=== PATIENT | female | born 1950 | race Hispanic/Latino ===

== ENCOUNTER → 2017-10-30 | Outpatient (CLI) | payer BC ==
[~2017-10-30] MED LIST: REGADENOSON 0.4 MG/5 ML PF SYG IVP SCH
== END | disposition home or self-care (01) ==
LOC: SHCH 08:56
PROVIDERS: ATTEND Internal Medicine Cardiovascular Disease
DX: I10 Essential (primary) hypertension (principal); I20.9 Angina pectoris, unspecified
CPT/HCPCS: 78452; 93017; 96374; A9500 ×2; J2785

== ENCOUNTER 2020-02-01 05:48 | Day surgery (SDC) | payer OTHER ==
[2020-02-01] VITALS (12 sets, daily range): BP systolic 118–148; BP diastolic 47–78
[~2020-02-01 05:48] MED LIST changes: +ASPI-556 PO; +HYDR12.54 PO; +METO100T14 PO; -REGADENOSON 0.4 MG/5 ML PF SYG IVP SCH; +ROSU5TAB12 PO
[2020-02-01 06:17] LABS: BASOPHILS % (AUTO) 0.3 % (0.0-5.0); EOSINOPHILS % (AUTO) 2.2 % (0.0-8.0); HEMATOCRIT 37.7 % (36-48); LYMPHOCYTES % (AUTO) 35.2 % (21.0-51.0); MEAN CORPUSCULAR HEMOGLOBIN 31.1 pg (27.0-33.0); MEAN CORPUSCULAR HGB CONC 31.8 g/dL (32.0-36.0); MEAN CORPUSCULAR VOLUME 97.7 fL (79-99); MONOCYTES % (AUTO) 11.4 % (3.0-13.0); NEUTROPHILS % (AUTO) 50.8 % (40.0-77.0); PLATELET COUNT (AUTO) 194 K/uL (130-400); RED BLOOD CELL COUNT(AUTO) 3.86 MIL/uL (4.00-5.50); RED CELL DISTRIBUTION WIDTH 13.9 % (11.0-15.5); WHITE BLOOD COUNT (AUTO) 6.8 K/uL (4.8-10.8)
[2020-02-01 06:33] LABS: CREATININE 0.9 mg/dL (0.5-1.5); POTASSIUM 3.7 mmol/L (3.5-5.1)
[2020-02-01 06:41] LABS: INR 0.97 (0.85-1.15); PARTIAL THROMBOPLASTIN TIME 24.7 SEC (26.3-35.5); PROTHROMBIN TIME 10.5 SEC (9.6-11.6)
[2020-02-01] MEDS ORDERED: SODIUM CHLORIDE 0.9% 1000ML 1,000 ML IV ONE (06:57)
[2020-02-01] MEDS ORDERED: BUPIVACAINE/PF 0.25% 30ML VIAL IJ ONE (07:26)
[2020-02-01] MEDS ORDERED: LIDOCAINE HCL 1% MDV 50ML VIAL ONE (07:26)
[2020-02-01] MEDS ORDERED: CEFAZOLIN SODIUM 1 GM VIAL ONE (07:26)
[2020-02-01] MEDS ORDERED: ONDANSETRON HCL 4 MG/2 ML VIAL ONE (07:44)
[2020-02-01] MEDS ORDERED: ACETAMINOPHEN 325 MG TAB PO PRN (08:45)
--- NOTE | 2020-02-01 08:50 | NUR ---
PT back from [employer]. Report received from TOBI Gómez via telephone. Care rendered over from TOBI Yo. Pt awake, alert, oriented, in no signs of distress. Pt with pressure dressing to left chest, remains clean, dry and intact. Ice pack applied to site. Pt denies any pain or nausea. Pt voided good amount via bedpan shortly after getting back. Tolerating fluids/solids.
--- NOTE | 2020-02-01 14:00 | NUR ---
Pt discharged home, tolerating fluids/solids well, ambulating well. Pt denies any pain, nausea or dizziness. Pressure dressing removed. Site remains clean, dry, and intact. No evidence of any bleeding. Pt instructed to leave dressing on until seen at scheduled follow-up appointment care. Pt instructed to monitor for signs and symptoms of bleeding or infection and to notify the doctor if any presented. Prescription for antibiotic given to patient.
== END 2020-02-01 14:00 | disposition home or self-care (01) ==
LOC: DAH 05:48
PROVIDERS: ATTEND Internal Medicine Cardiovascular Disease
DX: I49.5 Sick sinus syndrome (principal); I10 Essential (primary) hypertension; Z79.899 Other long term (current) drug therapy; Z79.01 Long term (current) use of anticoagulants
CPT/HCPCS: 33228; 36415; 80048; 85025; 85610; 85730; 93005; A4215; A4216; A4221; A4222; A4223 ×3; A4606; A4663; C1785; J0690; J2405; J3490 ×2; J7030

== ENCOUNTER → 2023-11-04 | Outpatient (CLI) | payer OTHER ==
[~2023-11-04] MED LIST changes: +NEOM28.36 TP
== END | disposition home or self-care (01) ==
LOC: RAH 13:08
PROVIDERS: ATTEND Internal Medicine Cardiovascular Disease
DX: Z13.6 Encounter for screening for cardiovascular disorders (principal); R07.9 Chest pain, unspecified
CPT/HCPCS: 75571

== ENCOUNTER 2024-01-13 09:36 | Emergency (ER) | payer OTHER ==
[~2024-01-13] VITALS: Ht 157.5 cm; Wt 112.0 kg
[2024-01-13 09:37] VITALS: BP 154/63; PULSE 68; RESP 14
[2024-01-13] MEDS: ONDANSETRON 4MG INJ IVP ONE (10:19)
[2024-01-13] MEDS: MORPHINE 2 MG SYG IM ONE (10:19)
[2024-01-13] MEDS: FAMOTIDINE 20MG VIAL IV ONE (10:19)
[2024-01-13 10:37] LABS: BASOPHILS # (AUTO) 0.04 K/uL (0.00-0.20); BASOPHILS % (AUTO) 0.6 % (0.0-5.0); EOSINOPHILS # (AUTO) 0.08 K/uL (0.00-0.70); EOSINOPHILS % (AUTO) 1.2 % (0.0-8.0); HEMATOCRIT 36.5 % (36-48); IMMATURE GRANULOCYTE ABSOLUTE 0.02 K/uL (0-1); LYMPHOCYTES % (AUTO) 30.4 % (21.0-51.0); MEAN CORPUSCULAR HEMOGLOBIN 31.5 pg (27.0-33.0); MEAN CORPUSCULAR HGB CONC 33.4 g/dL (32.0-36.0); MEAN CORPUSCULAR VOLUME 94.3 fL (79-99); MONOCYTES # (AUTO) 0.7 K/uL (0.1-1.0); MONOCYTES % (AUTO) 10.1 % (3.0-13.0); NEUTROPHILS # (AUTO) 3.7 K/uL (1.8-7.7); NEUTROPHILS % (AUTO) 57.4 % (40.0-77.0); PLATELET COUNT (AUTO) 224 K/uL (130-400); RED BLOOD CELL COUNT(AUTO) 3.87 MIL/uL (4.00-5.50); RED CELL DISTRIBUTION WIDTH 14.2 % (11.0-15.5); WHITE BLOOD COUNT (AUTO) 6.4 K/uL (4.8-10.8)
[2024-01-13 10:47] LABS: BILIRUBIN,URINE NEGATIVE (NEGATIVE); COLOR,URINE YELLOW (YELLOW); GLUCOSE, URINE (UA) NEGATIVE (NEGATIVE); KETONES,URINE NEGATIVE (NEGATIVE); LEUKOCYTE ESTERASE ,URINE SMALL Leu/uL (NEGATIVE); NITRATE,URINE NEGATIVE (NEGATIVE); OCCULT BLOOD,URINE MODERATE (NEGATIVE); PROTEIN,URINE TRACE mg/dL (NEGATIVE); UROBILINOGEN,URINE 0.2 mg/dL (0.2-1.0)
[2024-01-13 10:47] LABS: CREATININE 0.8 mg/dL (0.5-1.0); POTASSIUM 4.3 mmol/L (3.5-5.1)
[2024-01-13 10:48] LABS: APPEARANCE,URINE SLIGHTLY CLOUDY (CLEAR)
[2024-01-13 10:51] LABS: INR <= 0.93 (0.85-1.15); PROTHROMBIN TIME 10.8 SEC (9.6-11.6)
[2024-01-13 10:52] LABS: ALBUMIN 3.8 g/dL (3.5-5.0); BILIRUBIN,TOTAL 0.4 mg/dL (0.2-1.0); PARTIAL THROMBOPLASTIN TIME 25.3 SEC (26.3-35.5); TOTAL PROTEIN, SERUM 7.2 g/dL (6.0-8.3)
[2024-01-13 11:18] LABS: BACTERIA,URINE Moderate /HPF (None Seen)
[2024-01-13] MEDS ORDERED: CEPH500B PO (11:33)
[2024-01-13] MEDS: CEFTRIAXONE 1G VIAL IVPB ONE (11:58)
[2024-01-13] MEDS: KETOROLAC 30MG VIAL (30MG/ML) IVP ONE (11:58)
== END 2024-01-13 12:13 | disposition home or self-care (01) ==
LOC: EDH 09:36
DX: N39.0 Urinary tract infection, site not specified (principal); I10 Essential (primary) hypertension; E78.00 Pure hypercholesterolemia, unspecified; Z79.82 Long term (current) use of aspirin; Z79.899 Other long term (current) drug therapy; Z98.890 Other specified postprocedural states
CPT/HCPCS: 99284; 96374; 96375; 84484; 80053; 83690; 85025; 85610; 85730; 87077; 87088; 87186; 81001 ×2; 36415; 93005; 96372; J3490; J2270; J0696; J2405; J1885

== ENCOUNTER 2025-04-10 23:23 | Emergency (ER) | payer OTHER ==
[~2025-04-10] VITALS: Ht 157.5 cm; Wt 108.4 kg
[~2025-04-10 23:23] MED LIST changes: +CEPH500B PO; -ROSU5TAB12 PO; +ROSU5TAB51 PO
--- NOTE | 2025-04-11 01:14 | HMCIMG ---
EXAM: CR Left Shoulder, 2 views. CLINICAL HISTORY: Pain. COMPARISON: None provided. FINDINGS: No acute fracture or aggressive appearing osseous lesion. 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 The soft tissues are unremarkable. Partially visualized cardiac pacemaker device and leads on the left side. IMPRESSION: No acute bony abnormality is evident. 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 /[place]
--- NOTE | 2025-04-11 01:37 | HMCIMG ---
EXAM: CR Chest, 1 view CLINICAL HISTORY: Left shoulder pain. COMPARISON: Chest radiograph dated 12/20/2018. FINDINGS: Stable mild cardiomegaly. Left-sided cardiac pacemaker device is in place. Stable mild COPD. The bilateral CP angles and a portion of the lower zones are excluded from the image. The remaining lung pulido are clear. No large pleural effusion is evident. No pneumothorax. No acute osseous abnormality. Degenerative osseous changes. IMPRESSION: Stable mild cardiomegaly. Stable mild COPD. No gross interval changes. /[place]
--- NOTE | 2025-04-11 02:05 | ERN ---
General Chief Complaint: Upper Extremity Pain/Injury Stated Complaint: NON TRAUMATIC LUE PAIN Time Seen by MD: 23:32 Time Seen by Midlevel: 23:32 Source: patient History of Present Illness Initial Comments Patient is a 75-year-old female presenting to the emergency department for evaluation of atraumatic left shoulder pain that started earlier today. Pain is worse with movement. She denies chest pain but given her previous cardiac history she decided to report to the ER for further evaluation. Allergies: Coded Allergies: No Known Allergies (Unverified Allergy, Unknown, 12/27/22) No Known Drug Allergies (Unverified Allergy, Unknown, 10/28/17) Home Meds Active Scripts Cephalexin Monohydrate (Keflex) 500 Mg Cap, 500 MG PO QID for 7 Days, #28 CAP Prov:JENNI DOW MD 01/13/24 Neomy Sulf/Bacitrac Zn/Poly (Neosporin Ointment) 28.3 Gm Oint...g., 28.3 GM TP BID for 7 Days, #60 TUBE Prov:DESIREE FREEMAN MD 01/30/22 Reported Medications Aspirin (Aspir 81) 81 Mg Tablet.dr, 81 MG PO DAILY, TAB 01/28/20 Rosuvastatin Calcium (Rosuvastatin Calcium) 5 Mg Tablet, 5 MG PO HS, TAB 01/28/20 Hydrochlorothiazide (Hydrochlorothiazide) 12.5 Mg Tablet, 12.5 MG PO DAILY, TAB 01/28/20 Metoprolol Tartrate (Metoprolol Tartrate) 100 Mg Tablet, 100 MG PO BID, TAB 01/28/20 Past Medical History Past Medical History: High Cholesterol, Heart Disease, Hypertension Medical History Other: A FLUTTER Past Surgical History: Hysterectomy, Pacer/AICD Surgical History Other: LITHOTRIPSY ROS Dictation CONSTITUTIONAL: Negative except for HPI HEAD/FACE: Negative except for HPI EENT: Negative except for HPI RESPIRATORY: Negative except for HPI GASTROINTESTINAL/ABDOMINAL: Negative except for HPI GENITOURINARY: Negative except for HPI MUSCULOSKELETAL: Negative except for HPI INTEGUMENTARY: Negative except for HPI NEUROLOGICAL/PSYCH: Negative except for HPI HEMATOLOGIC/LYMPHATIC: Negative except for HPI All Systems Negative, Except as noted above. 13 point review of systems assessed and all negative except for above. Physical Exam Physical Exam Dictation Vital Signs reviewed General Appearance: Alert, oriented x 3, no acute distress, well developed, nourished. Head and Face: non-traumatic. Eyes: PERRL, pink conjunctivas, eyelid no trauma, anterior chamber with arcus senilis. Ears: Pinnas intact and no signs of trauma or erythema ear canals clear and no discharge TM no erythema Nose: No discharge, no bleeding. Oropharynx: Mouth normal, tongue pink, pharynx clear,no erythema, tonsils no exudates, no abscesses noted, mucous membrane moist Neck: Supple, non-tender, no thyromegaly, no masses, no JVD, no bruits Breast:Deferred Chest:No tenderness, no crepitus, no paradoxical movement, no retractions Lungs:Clear, well-ventilated, symmetric, no rales, no wheezing, no rhonchi, no stridor, good breath sounds bilaterally Heart: Regular rate, regular rhythm, no murmur, no gallops Vascular: no peripheral edema, Abdomen: Soft, positive bowel sounds, nondistended, no guarding, nontender, no rebound, no masses no hepatomegaly, no splenomegaly, no Morin's sign, no hernias. Rectal: Deferred Genital: Deferred Neurological: Normal speech, motor function intact, sensory function intact Musculoskeletal: Neck nontender, full range of motion, back nontender, full range of motion, Extremities: nontender, full range of motion Skin: Color pink, dry, no turgor, no rash, no lacerations, no abrasions, no contusions. Lymphatic: Deferred MDM MDM: Differential diagnosis: Musculoskeletal pain, calcific tendinitis, acute coronary syndrome There are no social concerns with this patient. Prescription drug management Prescriptions will include: None Medical management and examination interpretation discussions were had by me with other qualified healthcare professionals as indicated for the patient's care. ED Course Orders Procedure Category Date Status Time 12 Lead Ekg Tracing- EKG 04/11/25 Logged Technical 00:08 Shoulder Comp 2+Vws Lt RAD 04/11/25 Resulted 00:08 Morphine 2mg Syg PHA 04/11/25 Complete (Morphine 2mg Syg) 00:30 Ondansetron 4mg Inj PHA 04/11/25 Complete (Zofran 4mg Inj) 00:30 Chest 1vw RAD 04/11/25 Resulted 00:45 Current Medications Medications (Trade) Dose Ordered Sig/Toni Route PRN Reason Start Time Stop Time Status Last Admin Dose Admin Morphine Sulfate (morPHINE 2MG SYG) 2 mg ONCE ONCE IVP 04/11/25 00:30 04/11/25 00:31 DC 04/11/25 00:34 Ondansetron HCl (zoFRAN 4MG INJ) 4 mg ONCE ONCE IVP 04/11/25 00:30 04/11/25 00:31 DC 04/11/25 00:34 Vital Signs Date Time Temp Pulse Resp B/P (MAP) Pulse Ox O2 Delivery O2 Flow Rate FiO2 04/10/25 23:42 69 17 153/74 97 Room Air* 0 21 04/10/25 23:30 99.3 112 20 140/78 98 Room Air 0 [place] [address] [address] IMAGING REPORT Signed PATIENT: SALOME BAÑUELOS MR#: [id number] : 1950 SEX: F AGE: 75 LOCATION: [facility] ORDER STATUS: REG ER REPORT#: [id number] SERVICE REASON: pain ORDERING PHYSICIAN: EDEL BEGUM PROCEDURE: SHOL 2V LT - SHOULDER COMP 2+VWS LT EXAM: CR Left Shoulder, 2 views. CLINICAL HISTORY: Pain. COMPARISON: None provided. FINDINGS: No acute fracture or aggressive appearing osseous lesion. 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 The soft tissues are unremarkable. Partially visualized cardiac pacemaker device and leads on the left side. IMPRESSION: No acute bony abnormality is evident. 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 /[place] DICTATED BY: DALJIT PRIDE Jr., MD DATE: 04/11/25212 ELECTRONICALLY SIGNED BY: DALJIT PRIDE Jr., MD DATE: 04/11/25212 DX & DISP Disposition: Discharge Departure Impression: Primary Impression: Osteoarthritis of left shoulder Condition: Stable Additional Instructions: Your left shoulder x-ray does not show any evidence of an acute fracture or dislocation. However, there is evidence of [id number] osteoarthritis of the left shoulder joint. Your EKG does not show any evidence of a heart attack. You may take Tylenol and Motrin as needed for pain. Follow up with your primary care doctor in 2-3 days for repeat evaluation. Referrals: ANAI CHAVEZ MD (PCP) Time of Disposition: 02:04 I have reviewed the case, and I agree with, Diagnosis and Plan I performed the substantive portion of the visit. I have reviewed and personally made and approve the management plan that is documented in the note by myself or the ANDREWS. I acknowledge for responsibility for the patient's management plan. EDEL BEGUM Apr 11, 2025 02:05
--- NOTE | 2025-04-11 02:19 | NUR ---
SLING APPLIED TO L ARM, PATIENT TOLERATED WELL
[2025-04-11 02:20] VITALS: BP 134/71; PULSE 69; RESP 17; TEMP 98.6; O2SAT 96
--- NOTE | 2025-04-11 06:48 | EKG ---
[facility] Test Date: 2025-04-11 Test Time: 00:56:40 Pat Name: SALOME BAÑUELOS Department: ED Room: Gender: F Central Office Associate: [facility] : 1950 Requested By: EDEL BEGUM Order Number: [id number] Reading MD: Jesse Griffin Measurements Intervals Christine Rate: 69 P: 0 NC: 0 QRS: -71 QRSD: 169 T: 107 QT: 460 QTc: 494 Interpretive Statements Normal Sinus Rhythm Nonspecific IVCD with LAD LVH with secondary repolarization abnormality ST elevation secondary to IVCD Compared to ECG 01/13/2024 10:43:54 Left ventricular hypertrophy now present Early repolarization now present Sinus rhythm no longer present Left bundle-branch block no longer present ST (T wave) deviation still present Electronically Signed On 04-11-2025 19:16:41 CDT by Jesse Griffin Please click the below link to view image of tracing.
== END 2025-04-11 02:21 | disposition home or self-care (01) ==
LOC: EDBD 23:23 → EDH 23:23
DX: M19.012 Primary osteoarthritis, left shoulder (principal); E78.00 Pure hypercholesterolemia, unspecified; I11.9 Hypertensive heart disease without heart failure; Z79.82 Long term (current) use of aspirin; Z79.899 Other long term (current) drug therapy; Z90.710 Acquired absence of both cervix and uterus; Z95.810 Presence of automatic (implantable) cardiac defibrillator
CPT/HCPCS: 71045; 73030; 93005; 96374; 96375; 99284; J2270; J2405